=== PATIENT | male | born 1970 | race Two or more races ===

== ENCOUNTER 2017-12-25 08:00 | Outpatient (AMBR) | payer OTHER, SELFPAY ==
--- NOTE | 2017-12-04 08:06 | PT.OIERPT ---
PT OP Initial Eval Patient Information Visit Reasons: right knee pain Medical Diagnosis: M25.569 Treatment Dx #1: R knee pain Start of Care: 12/04/17 Date of Onset: 11/21/17 Initial Assessment Subjective Pt is 47 yr old male s/p R medial menisectomy about 2 weeks ago. Prior to sx, pt had knee pain on and off and then felt increased pain in the knee after walking up a hill. He is ambulating limited distances about 20-30 yards and then sits. Pain level is 0/10 now and about 5/10 after walking. PMH: DM, vestibular imbalance Imaging: MRI prior to sx Pt goal: to be able to function day to day without pain and an occasional jog. Objective R knee AROM: Flexion: 115 deg Extension: -5 deg SLR: 40 deg PROM: pain at end-range flexion and extension limits overpressure tolerance Strength: Quads: 4/5 Hamstrings: 4/5 Gait: decreased stance time and toe off on R Patella PROM: limited in all planes Incisions: steristrips in place Assessment Pt presentation consistent with post op R medial menisectomy with decreased knee ROM, strength and function with gait. Pt has pain at first resistance into knee flexion that limits end-range tolerance. Pt can SLR slowly to about 20 deg and has slight extensor lag. Pt has good rehab potential with attainable functional improvement. Short Term and Penitentiary Goals 1. Independent with HEP 2. Improved knee flexion ROM to 120 deg 3. Improved quad and hamstring strength to 4+/5 4. Improved ambulatory tolerance to community distances with symmetrical gait pattern without assistive device. 5. Improved ambulatory distance to 30 minutes with <=2/10 pain Treatment Plan Pt has 10 visits authorized and will be scheduled for 2x a week. 1. Manual therapy 2. Therex 3. Modalities as indicated, estim, hot packs, ice Frequency and Duration 2x a week for 6 weeks Certification Dates: 12/04/17 to 03/03/18 Office Procedures PT Procedures PT Date of Service: 12/04/17 OP PT Eval Mod Complex 30 minutes: Yes
--- NOTE | 2017-12-09 12:17 | PT.ODAYNRPT ---
PT Outpatient Daily Note Date of Service: December 09, 2017 OP Daily Note Visit Reasons: right knee pain Outpatient Physical Therapy Treatment Date: 12/09/17 Subjective: The knee feels stiff after sitting or waking up. He stood for a few hours at a football game the knee was killing me Objective: See F/S for therex MT: STM to medial joint line and patella borders x10' with Graston. IFC with ice pack to R knee x7' after MT and therex Assessment: Slowly improving WB tolerance of R knee with pain along medial joint line that limits gait and prolonged standing tolerance. Plan: Continue per POC Length of Time (minutes) of Treatment: 40 Minutes Office Procedures PT Procedures PT Date of Service: 12/04/17 OP PT Eval Mod Complex 30 minutes: Yes PT Procedures PT Date of Service: 12/09/17 Therapeutic Exercise 15 minutes: Yes Manual Breeding Manager 15 minutes: Yes
--- NOTE | 2017-12-11 17:06 | PTNOTE_ITS ---
PT Outpatient Daily Note Date of Service: December 11, 2017 OP Daily Note Visit Reasons: right knee pain Outpatient Physical Therapy Treatment Date: 12/11/17 Subjective: The knee feels stiff after sitting or waking up. Objective: See F/S for therex MT: STM to popliteal fossa and gastrocnemius x10' with Graston. Assessment: Pt lacks knee extension with gait and in supine. Improved PROM of knee extension after manual therapy today to -5 deg limited by possible joint effusion, hamstring guarding and pain. Plan: Continue per POC Length of Time (minutes) of Treatment: 30 Minutes Office Procedures PT Procedures PT Date of Service: 12/04/17 OP PT Eval Mod Complex 30 minutes: Yes PT Procedures PT Date of Service: 12/09/17 Therapeutic Exercise 15 minutes: Yes Manual Naval Police Coxswain 15 minutes: Yes PT Procedures PT Date of Service: 12/11/17 Therapeutic Exercise 15 minutes: Yes Manual [employer] Coxswain 15 minutes: Yes
--- NOTE | 2017-12-16 08:59 | PT.ODAYNRPT ---
PT Outpatient Daily Note Date of Service: December 16, 2017 OP Daily Note Visit Reasons: right knee pain Outpatient Physical Therapy Treatment Date: 12/16/17 Subjective: The knee feels stiff after walking far, sitting or waking up. Objective: See F/S for therex MT: PPM into knee extension and flexion Gr 4 overpressure x10' PROM: knee flexion 118 deg Assessment: Improved knee extension with gait and in supine. Improved PROM of knee flexion after manual therapy today to 118 deg limited by myofascial tightness Plan: Continue per POC Length of Time (minutes) of Treatment: 30 Minutes Office Procedures PT Procedures PT Date of Service: 12/04/17 OP PT Eval Mod Complex 30 minutes: Yes PT Procedures PT Date of Service: 12/16/17 Therapeutic Exercise 15 minutes: Yes Manual Clinical Staff Anesthesiologist 15 minutes: Yes PT Procedures PT Date of Service: 12/09/17 Therapeutic Exercise 15 minutes: Yes Manual Clinical Staff Anesthesiologist 15 minutes: Yes PT Procedures PT Date of Service: 12/11/17 Therapeutic Exercise 15 minutes: Yes Manual Clinical Staff Anesthesiologist 15 minutes: Yes
--- NOTE | 2017-12-18 18:11 | PTNOTE_ITS ---
PT Outpatient Daily Note Date of Service: December 18, 2017 OP Daily Note Visit Reasons: right knee pain Outpatient Physical Therapy Treatment Date: 12/18/17 Subjective: The knee feels stiff after walking far, sitting or waking up. Objective: See F/S for therex MT: PPM into knee extension and flexion Gr 4 overpressure x10' Assessment: Improved knee extension with gait and in supine. Improved PROM of knee flexion after manual therapy today Plan: Continue per POC Length of Time (minutes) of Treatment: 30 Minutes Office Procedures PT Procedures PT Date of Service: 12/04/17 OP PT Eval Mod Complex 30 minutes: Yes PT Procedures PT Date of Service: 12/16/17 Therapeutic Exercise 15 minutes: Yes Manual Structural Drafter 15 minutes: Yes PT Procedures PT Date of Service: 12/18/17 Therapeutic Exercise 15 minutes: Yes Manual Structural Drafter 15 minutes: Yes PT Procedures PT Date of Service: 12/09/17 Therapeutic Exercise 15 minutes: Yes Manual Structural Drafter 15 minutes: Yes PT Procedures PT Date of Service: 12/11/17 Therapeutic Exercise 15 minutes: Yes Manual Structural Drafter 15 minutes: Yes
--- NOTE | 2017-12-23 19:34 | PT.ODAYNRPT ---
PT Outpatient Daily Note Date of Service: December 23, 2017 OP Daily Note Visit Reasons: right knee pain Outpatient Physical Therapy Treatment Date: 12/23/17 Subjective: The knee feels stiff after walking far, sitting or waking up. Objective: See F/S for therex MT: PPM into knee extension and flexion Gr 4 overpressure x10' Assessment: Improved knee extension with gait and in supine. Improved PROM of knee flexion after manual therapy today to -3 deg Plan: Continue per POC Length of Time (minutes) of Treatment: 30 Minutes Office Procedures PT Procedures PT Date of Service: 12/04/17 OP PT Eval Mod Complex 30 minutes: Yes PT Procedures PT Date of Service: 12/16/17 Therapeutic Exercise 15 minutes: Yes Manual Manager Heart 15 minutes: Yes PT Procedures PT Date of Service: 12/18/17 Therapeutic Exercise 15 minutes: Yes Manual Manager Heart 15 minutes: Yes PT Procedures PT Date of Service: 12/09/17 Therapeutic Exercise 15 minutes: Yes Manual Manager Heart 15 minutes: Yes PT Procedures PT Date of Service: 12/11/17 Therapeutic Exercise 15 minutes: Yes Manual Manager Heart 15 minutes: Yes PT Procedures PT Date of Service: 12/23/17 Therapeutic Exercise 15 minutes: Yes Manual Manager Heart 15 minutes: Yes
--- NOTE | 2017-12-25 09:47 | PT.ODAYNRPT ---
PT Outpatient Daily Note Date of Service: December 25, 2017 OP Daily Note Visit Reasons: right knee pain Outpatient Physical Therapy Treatment Date: 12/25/17 Subjective: The knee feels stiff deep in the joint. Increased pain with prolonged standing. Objective: See F/S for therex MT: PPM into knee flexion Gr 4 overpressure, STM with Graston anterior and medial knee x10' total Assessment: Improved knee extension with gait and in supine. Improved PROM of knee flexion after manual therapy today to 116 deg Plan: Continue per POC Length of Time (minutes) of Treatment: 30 Minutes Office Procedures PT Procedures PT Date of Service: 12/04/17 OP PT Eval Mod Complex 30 minutes: Yes PT Procedures PT Date of Service: 12/16/17 Therapeutic Exercise 15 minutes: Yes Manual Food Cooking Machine Operator 15 minutes: Yes PT Procedures PT Date of Service: 12/18/17 Therapeutic Exercise 15 minutes: Yes Manual Food Cooking Machine Operator 15 minutes: Yes PT Procedures PT Date of Service: 12/25/17 Therapeutic Exercise 15 minutes: Yes Manual Food Cooking Machine Operator 15 minutes: Yes PT Procedures PT Date of Service: 12/09/17 Therapeutic Exercise 15 minutes: Yes Manual Food Cooking Machine Operator 15 minutes: Yes PT Procedures PT Date of Service: 12/11/17 Therapeutic Exercise 15 minutes: Yes Manual Food Cooking Machine Operator 15 minutes: Yes PT Procedures PT Date of Service: 12/23/17 Therapeutic Exercise 15 minutes: Yes Manual Food Cooking Machine Operator 15 minutes: Yes
== END 2017-12-29 23:59 | disposition home or self-care (01) ==
PROVIDERS: PCP Internal Medicine; Referring Provider Internal Medicine; Visit Provider Orthopaedic Surgery
DX: M25.561 Pain in right knee (principal); Z98.890 Other specified postprocedural states; R26.9 Unspecified abnormalities of gait and mobility
CPT/HCPCS: 97110; 97140; 97162

== ENCOUNTER 2017-12-31 08:00 | Outpatient (AMBR) | payer OTHER, SELFPAY ==
--- NOTE | 2017-12-30 11:21 | PT.ODAYNRPT ---
PT Outpatient Daily Note Date of Service: December 30, 2017 OP Daily Note Visit Reasons: right knee Outpatient Physical Therapy Treatment Date: 12/30/17 Subjective: The knee feels stiff but less pain with prolonged standing Objective: See F/S for therex MT: PPM into knee extension in supine Gr 4 x10' Assessment: Slowly improving knee extension and pain level. Good improvement with knee flexion to 124 deg PROM. Plan: Continue per POC Length of Time (minutes) of Treatment: 30 Minutes Office Procedures PT Procedures PT Date of Service: 12/30/17 Therapeutic Exercise 15 minutes: Yes Manual Security Threat Analyst 15 minutes: Yes
--- NOTE | 2017-12-31 17:32 | PTNOTE_ITS ---
PT Outpatient Daily Note Date of Service: December 31, 2017 OP Daily Note Visit Reasons: right knee Outpatient Physical Therapy Treatment Date: 12/31/17 Subjective: The knee feels stiff but less pain with prolonged standing Objective: See F/S for therex Assessment: Slowly improving knee extension and pain level. Good improvement with knee extension PROM to full today. Plan: Continue per POC Length of Time (minutes) of Treatment: 30 Minutes Office Procedures PT Procedures PT Date of Service: 12/30/17 Therapeutic Exercise 15 minutes: Yes Manual Pneumatic Tester Mechanic 15 minutes: Yes PT Procedures PT Date of Service: 12/31/17 Therapeutic Exercise 30 minutes: Yes
== END 2018-01-29 23:59 | disposition home or self-care (01) ==
PROVIDERS: PCP Internal Medicine; Referring Provider Internal Medicine; Visit Provider Orthopaedic Surgery
DX: M25.561 Pain in right knee (principal); Z98.890 Other specified postprocedural states
CPT/HCPCS: 97110; 97140

== ENCOUNTER → 2024-04-29 | Outpatient (CLI) | payer OTHER, SELFPAY ==
--- NOTE | 2024-04-29 15:45 | XR_ITS ---
Examination: PA lateral chest 2 views TECHNIQUE: Upright PA lateral chest 2 views Exam date and time: April 29, 2024 1557 hours Comparison May 06, 2020 INDICATIONS: Coughing 3 months. FINDINGS: Normal heart size. Lungs are clear. The osseous structures are intact IMPRESSION: No active disease
== END | disposition home or self-care (01) ==
PROVIDERS: PCP Internal Medicine; Referring Provider Internal Medicine; Visit Provider Internal Medicine
DX: R05.9 Cough, unspecified (principal)
CPT/HCPCS: 71046

== ENCOUNTER → 2024-05-15 | Outpatient (CLI) | payer OTHER, SELFPAY ==
[2024-05-15 12:30] LABS: Alanine Aminotransferase 42 U/L (10-49); Albumin, Serum 4.5 gm/dL (3.5-5.0); Alkaline Phosphatase 113 U/L (46-116); Anion Gap 4 (7-16); Aspartate Amino Transferase 18 U/L (0-34); BUN/Creatinine Ratio 17 Ratio (12-20); Bilirubin,Direct 0.2 mg/dL (0.0-0.3); Bilirubin,Total 0.7 mg/dL (0.3-1.2); Blood Urea Nitrogen 20 mg/dL (9-23); Calcium 9.4 mg/dL (8.3-10.6); Calcium (Corrected) 9.4 mg/dL (8.5-10.1); Carbon Dioxide 28.9 mMol/L (20.0-31.0); Cardiac Risk Estimate 3.2 RATIO (4.0-6.7); Chloride 107 mMol/L (98-107); Cholesterol 153 mg/dL (132-200); Creatinine (Component) 1.2 mg/dL (0.6-1.3); Globulin 2.3 gm/dL (2.3-3.5); Glucose 85 mg/dL (74-106); HDL Cholesterol 48 mg/dL (40-60); LDL Cholesterol,Calculated 98 mg/dL (0-130); Osmolality,Calculated 281 (275-295); Phosphorous 4.1 mg/dL (2.4-5.1); Potassium 4.2 mMol/L (3.4-5.1); Sodium 140 mMol/L (136-145); Total Protein 6.8 gm/dL (5.7-8.2); Triglycerides 35 mg/dL (30-150); eGFR > 60 See Note
[2024-05-15 13:10] LABS: Cocci Serology, IgM Negative (Negative)
[2024-05-16 14:18] LABS: Cocci Serology, IgG Negative (Negative)
== END | disposition home or self-care (01) ==
LOC: SLAB 11:11
PROVIDERS: PCP Internal Medicine; Referring Provider Internal Medicine; Visit Provider Internal Medicine
DX: I10 Essential (primary) hypertension (principal)
CPT/HCPCS: 36415; 80053; 80061; 82248; 84100; 86331; 86635

== ENCOUNTER → 2024-05-22 | Outpatient (CLI) | payer OTHER, SELFPAY ==
--- NOTE | 2024-05-22 15:00 | XR_ITS ---
Examination: CT facial bones, without intravenous contrast. 2-D sagittal reconstructions. 3-D reconstructions. Date and time of exam:May 22, 2024 at 1602 hours INDICATIONS: Chronic sinus pressure and pain postnasal drip, history cyst removal 4 months ago CTDI: vol (mGy):9.67 DLP: (mGycm):121 Technique: Multiple axial images of maxillofacial region, 3.0 mm slice thickness. 2-D sagittal and coronal reconstructions. 3-D reconstructions. Low dose protocols were performed. One or more of the following dose reduction techniques were used; automated exposure control, adjustment of the mA and/or KV according to patient size, use of iterative reconstruction technique. Findings: Mild mucosal thickening frontal air cells Mild to moderate mucosal thickening ethmoid air cells including partial occlusion right and left ostiomeatal complexes Moderate hypertrophy left inferior nasal turbinate mild hypertrophy left middle turbinate Deviation lower nasal septum to the right 3 mm Polypoid mucosal disease in both maxillary antra measuring up to 7 mm Trace sphenoid mucosal thickening Mild prominence of the nasopharyngeal soft tissue, sagittal image 57 The optic globes exhibit symmetry No cerebral mass lesion noted Pituitary is not enlarged Negative for mastoiditis Negative for otitis media IMPRESSION: Chronic sinus disease as above.
== END | disposition home or self-care (01) ==
LOC: SCAT 15:56
PROVIDERS: PCP Internal Medicine; Referring Provider Internal Medicine; Visit Provider Internal Medicine
DX: J32.8 Other chronic sinusitis (principal)
CPT/HCPCS: 70486

== ENCOUNTER → 2024-09-01 | Outpatient (CLI) | payer OTHER, SELFPAY ==
[2024-09-01 09:52] LABS: Basophils % (Auto) 1 % (0-2.5); Eosinophils # (Auto) 0.3 Thou/mm3 (0.0-0.5); Eosinophils % (Auto) 5 % (0-10); Hematocrit 41.6 % (41.0-53.0); Hemoglobin 14.6 g/dL (13.5-16.0); Immature Granulocytes % (Auto) 0 % (0-0); Immature Granulocytes Auto 0.01 Thou/mm3 (0.00-0.00); Lymphocytes # (Auto) 1.6 Thou/mm3 (1.0-4.8); Lymphocytes % (Auto) 29 % (10-50); Mean Corpuscular HGB Conc 35.1 g/dl (31.0-37.0); Mean Corpuscular Hemoglobin 30.5 pg (25.0-35.0); Mean Corpuscular Volume 87 fL (80-100); Monocytes # (Auto) 0.5 Thou/mm3 (0.0-0.8); Monocytes % (Auto) 9 % (0-12); Neutrophils # (Auto) 3.1 Thou/mm3 (1.8-7.7); Neutrophils % (Auto) 57 % (37-80); Nucleated Red Blood Cell % 0 /100 WBC (0); Platelet Count 250 Thou/mm3 (140-440); RDW Standard Deviation 42.1 fL (35.1-43.9); Red Blood Count 4.79 Miln/mm3 (4.50-5.90); White Blood Count 5.5 Thou/mm3 (3.8-10.6)
[2024-09-01 10:23] LABS: Glucose Estimated Average 111 mg/dL (80-131); Hemoglobin A1C 5.5 % Hgb (4.8-6.0)
[2024-09-01 11:09] LABS: Alanine Aminotransferase 17 U/L (10-49); Albumin, Serum 4.2 gm/dL (3.5-5.0); Albumin/Globulin Ratio 2.2 (1.2-2.2); Alkaline Phosphatase 104 U/L (46-116); Anion Gap 10 (7-16); Aspartate Amino Transferase 14 U/L (0-34); BUN/Creatinine Ratio 13 Ratio (12-20); Bilirubin,Direct 0.3 mg/dL (0.0-0.3); Bilirubin,Total 0.9 mg/dL (0.3-1.2); Blood Urea Nitrogen 15 mg/dL (9-23); Calcium 8.6 mg/dL (8.3-10.6); Calcium (Corrected) 8.6 mg/dL (8.5-10.1); Carbon Dioxide 27.9 mMol/L (20.0-31.0); Cardiac Risk Estimate 2.5 RATIO (4.0-6.7); Chloride 106 mMol/L (98-107); Cholesterol 107 mg/dL (132-200); Creatinine (Component) 1.2 mg/dL (0.6-1.3); Free T4 (Free Thyroxine) 1.11 ng/dL (0.89-1.76); Globulin 1.9 gm/dL (2.3-3.5); Glucose 92 mg/dL (74-106); HDL Cholesterol 42 mg/dL (40-60); LDL Cholesterol,Calculated 53 mg/dL (0-130); Osmolality,Calculated 287 (275-295); Sodium 144 mMol/L (136-145); Thyroid Stimulating Hormone 0.57 uIU/mL (0.55-4.78); Total Protein 6.1 gm/dL (5.7-8.2); Triglycerides 61 mg/dL (30-150); Uric Acid 4.7 mg/dL (3.7-9.2); eGFR > 60 See Note
[2024-09-01 11:14] LABS: Prostate Specific Antigen 0.36 ng/mL (0-4.00)
[2024-09-01 11:25] LABS: Vitamin B12 417 pg/mL (211-911)
== END | disposition home or self-care (01) ==
PROVIDERS: PCP Internal Medicine; Referring Provider Internal Medicine; Visit Provider Internal Medicine
DX: Z00.00 Encounter for general adult medical examination without abnormal findings (principal); E11.9 Type 2 diabetes mellitus without complications; E78.5 Hyperlipidemia, unspecified; I11.0 Hypertensive heart disease with heart failure
CPT/HCPCS: 36415; 80053; 80061; 80076; 82248; 82306; 82607; 83036; 84153; 84439; 84443; 84550; 85025

== ENCOUNTER → 2024-09-02 | Outpatient (CLI) | payer OTHER, SELFPAY ==
[2024-09-02 11:20] LABS: Protein Total, Urine Volume 2830 mL/24hr (600-1800)
[2024-09-02 11:29] LABS: Protein Total, 24 hr Urine 170 mg/24hr (<149); Protein Total, Urine < 6 mg/dL (1-14)
== END | disposition home or self-care (01) ==
PROVIDERS: PCP Internal Medicine; Referring Provider Internal Medicine; Visit Provider Internal Medicine
DX: Z00.00 Encounter for general adult medical examination without abnormal findings (principal); E11.9 Type 2 diabetes mellitus without complications; E78.5 Hyperlipidemia, unspecified; I10 Essential (primary) hypertension
CPT/HCPCS: 84156

== ENCOUNTER → 2024-09-21 | Outpatient (CLI) | payer OTHER, SELFPAY ==
[2024-09-21 11:40] LABS: Basophils % (Auto) 1 % (0-2.5); Eosinophils # (Auto) 0.2 Thou/mm3 (0.0-0.5); Eosinophils % (Auto) 3 % (0-10); Hematocrit 44.8 % (41.0-53.0); Hemoglobin 14.9 g/dL (13.5-16.0); Immature Granulocytes % (Auto) 0 % (0-0); Immature Granulocytes Auto 0.03 Thou/mm3 (0.00-0.00); Lymphocytes # (Auto) 1.9 Thou/mm3 (1.0-4.8); Lymphocytes % (Auto) 27 % (10-50); Mean Corpuscular HGB Conc 33.3 g/dl (31.0-37.0); Mean Corpuscular Hemoglobin 29.8 pg (25.0-35.0); Mean Corpuscular Volume 90 fL (80-100); Monocytes # (Auto) 0.7 Thou/mm3 (0.0-0.8); Monocytes % (Auto) 10 % (0-12); Neutrophils % (Auto) 59 % (37-80); Nucleated Red Blood Cell % 0 /100 WBC (0); Platelet Count 240 Thou/mm3 (140-440); RDW Standard Deviation 43.8 fL (35.1-43.9); White Blood Count 6.8 Thou/mm3 (3.8-10.6)
[2024-09-21 11:49] LABS: Glucose Estimated Average 108 mg/dL (80-131); Hemoglobin A1C 5.4 % Hgb (4.8-6.0); Prostate Specific Antigen 0.37 ng/mL (0-4.00)
[2024-09-21 11:54] LABS: Alanine Aminotransferase 19 U/L (10-49); Albumin, Serum 4.4 gm/dL (3.5-5.0); Albumin/Globulin Ratio 2.2 (1.2-2.2); Alkaline Phosphatase 93 U/L (46-116); Anion Gap 7 (7-16); Aspartate Amino Transferase 17 U/L (0-34); BUN/Creatinine Ratio 15 Ratio (12-20); Blood Urea Nitrogen 18 mg/dL (9-23); Calcium 9.3 mg/dL (8.3-10.6); Calcium (Corrected) 9.3 mg/dL (8.5-10.1); Carbon Dioxide 26.6 mMol/L (20.0-31.0); Cardiac Risk Estimate 3.1 RATIO (4.0-6.7); Chloride 106 mMol/L (98-107); Cholesterol 146 mg/dL (132-200); Creatinine (Component) 1.2 mg/dL (0.6-1.3); Free T4 (Free Thyroxine) 1.06 ng/dL (0.89-1.76); Glucose 93 mg/dL (74-106); HDL Cholesterol 47 mg/dL (40-60); LDL Cholesterol,Calculated 85 mg/dL (0-130); Osmolality,Calculated 281 (275-295); Potassium 4.1 mMol/L (3.4-5.1); Sodium 140 mMol/L (136-145); Thyroid Stimulating Hormone 1.05 uIU/mL (0.55-4.78); Total Protein 6.4 gm/dL (5.7-8.2); Triglycerides 68 mg/dL (30-150); eGFR > 60 See Note
[2024-09-28 06:48] LABS: Albumin 4.3 g/dL (3.6-5.1); SHBG 39 nmol/L (22-77); Testosterone, Bioavailable 78.3 ng/dL (110.0-575.0); Testosterone, Free 39.8 pg/mL (46.0-224.0); Testosterone,Total 351 ng/dL (250-1100)
== END | disposition home or self-care (01) ==
LOC: SLAB 09:38
PROVIDERS: PCP Internal Medicine; Referring Provider Internal Medicine Endocrinology, Diabetes & Metabolism; Visit Provider Internal Medicine Endocrinology, Diabetes & Metabolism
DX: E29.1 Testicular hypofunction (principal)
CPT/HCPCS: 36415; 80053; 80061; 82040; 83036; 84153; 84270; 84403; 84439; 84443; 85025